=== PATIENT | female | born 1985 | race Caucasian/White ===

== ENCOUNTER 2016-05-27 15:02 | Emergency (ER) | payer OTHER | END 2016-05-27 15:13 | disposition home or self-care (01) | LOC: ER 15:02 | DX: H60.92 Unspecified otitis externa, left ear (principal); K21.9 Gastro-esophageal reflux disease without esophagitis; F17.200 Nicotine dependence, unspecified, uncomplicated; Z88.8 Allergy status to other drugs, medicaments and biological substances ==